=== PATIENT | female | born 1970 | race Caucasian/White ===

== ENCOUNTER → 2018-12-23 | Outpatient (CLI) | payer BC | LOC: MAMMO 09:34 | PROVIDERS: ATTEND Obstetrics & Gynecology | DX: Z12.31 Encounter for screening mammogram for malignant neoplasm of breast (principal) | CPT/HCPCS: 77067 ==

== ENCOUNTER → 2020-02-03 | Outpatient (CLI) | payer BC | LOC: MAMMO 16:10 | PROVIDERS: ATTEND Obstetrics & Gynecology | DX: Z12.31 Encounter for screening mammogram for malignant neoplasm of breast (principal) | CPT/HCPCS: 77067 ==

== ENCOUNTER → 2021-02-13 | Outpatient (CLI) | payer BC | LOC: MAMMO 09:46 | PROVIDERS: ATTEND Obstetrics & Gynecology | DX: Z12.31 Encounter for screening mammogram for malignant neoplasm of breast (principal) | CPT/HCPCS: 77067 ==

== ENCOUNTER → 2024-05-02 | Outpatient (REF) | payer BC | LOC: MAMMO 09:20 | PROVIDERS: ATTEND Obstetrics & Gynecology | DX: Z12.31 Encounter for screening mammogram for malignant neoplasm of breast (principal) | CPT/HCPCS: 77067 ==